=== PATIENT | male | born 1970 | race Caucasian/White ===

== ENCOUNTER 2016-11-10 12:50 | Emergency (ER) | payer OTHER | END 2016-11-10 14:21 | disposition home or self-care (01) | LOC: D.ER 12:50 | DX: M50.10 Cervical disc disorder with radiculopathy, unspecified cervical region (principal); I10 Essential (primary) hypertension; F17.200 Nicotine dependence, unspecified, uncomplicated ==

== ENCOUNTER 2016-11-21 18:12 | Emergency (ER) | payer OTHER | END 2016-11-21 19:34 | disposition home or self-care (01) | LOC: D.ER 18:12 | DX: M50.30 Other cervical disc degeneration, unspecified cervical region (principal); M62.830 Muscle spasm of back; M54.2 Cervicalgia; S16.1XXA Strain of muscle, fascia and tendon at neck level, initial encounter; X58.XXXA Exposure to other specified factors, initial encounter; Y93.89 Activity, other specified; Y92.89 Other specified places as the place of occurrence of the external cause; F17.200 Nicotine dependence, unspecified, uncomplicated; I10 Essential (primary) hypertension ==

== ENCOUNTER → 2016-12-10 14:10 | Outpatient (CLI) | payer OTHER | END | disposition home or self-care (01) | LOC: D.RAD 14:10 | DX: M48.32 Traumatic spondylopathy, cervical region (principal) ==

== ENCOUNTER 2016-12-29 14:09 | Emergency (ER) | payer OTHER | END 2016-12-29 18:05 | disposition home or self-care (01) | LOC: D.ER 14:09 | DX: S16.1XXA Strain of muscle, fascia and tendon at neck level, initial encounter (principal); X58.XXXA Exposure to other specified factors, initial encounter; Y93.89 Activity, other specified; Y92.89 Other specified places as the place of occurrence of the external cause; M54.2 Cervicalgia; M19.90 Unspecified osteoarthritis, unspecified site; M54.12 Radiculopathy, cervical region; I10 Essential (primary) hypertension; F17.200 Nicotine dependence, unspecified, uncomplicated ==

== ENCOUNTER 2017-02-17 13:44 | Emergency (ER) | payer SELFPAY | END 2017-02-17 16:15 | disposition left against medical advice (07) | LOC: D.ER 13:44 | DX: M54.5 Low back pain (principal); Z76.5 Malingerer [conscious simulation]; M54.2 Cervicalgia ==

== ENCOUNTER 2017-04-27 12:08 | Emergency (ER) | payer OTHER | END 2017-04-27 14:28 | disposition home or self-care (01) | LOC: D.ER 12:08 | DX: M50.30 Other cervical disc degeneration, unspecified cervical region (principal); F17.200 Nicotine dependence, unspecified, uncomplicated ==

== ENCOUNTER 2017-08-26 09:41 | Emergency (ER) | payer OTHER | END 2017-08-26 10:30 | disposition home or self-care (01) | LOC: D.ER 09:41 | DX: M70.51 Other bursitis of knee, right knee (principal); W01.0XXA Fall on same level from slipping, tripping and stumbling without subsequent striking against object, initial encounter; Y92.019 Unspecified place in single-family (private) house as the place of occurrence of the external cause; M50.30 Other cervical disc degeneration, unspecified cervical region ==